=== PATIENT | male | born 1985 | race Caucasian/White ===

== ENCOUNTER 2016-05-19 23:06 | Emergency (ER) | payer OTHER ==
[2016-05-19 23:17] VITALS: RESP 18; TEMP 98
--- NOTE | 2016-05-19 23:39 | ED ---
ENT HPI - General Chief complaint: Dental/Oral Stated complaint: Dental Pain Time Seen by Provider: 05/19/16 23:30 Source: patient, RN notes reviewed Mode of arrival: ambulatory Limitations: no limitations - History of Present Illness Initial comments: 30-year-old male presents emergency Department chief complaint of right-sided dental pain. Patient states that this pain started about 2 weeks ago. Patient states he notices swelling over his tooth at this time so he was concerned. Patient denies any radiation of pain to the neck. Patient denies any difficulty opening closing the mouth. Patient denies any fever or chills. Patient denies any recent fever, chills, shortness of breath, chest pain, back pain, abdominal pain, nausea vomiting, numbness or tingling, dysuria or hematuria, constipation or diarrhea, headaches or visual changes, or any other current symptoms. - Related Data Previous Rx's Medication Instructions Recorded Ibuprofen [Motrin] 600 mg PO Q8HR PRN #30 tab 07/02/14 Ibuprofen [Motrin] 600 mg PO Q6HR PRN #20 tab 05/19/16 Penicillin V Potassium [Pen Vee K] 500 mg PO TID #40 tab 05/19/16 traMADol HCl [Ultram] 50 mg PO Q4H PRN #20 tab 05/19/16 Allergies Allergy/AdvReac Type Severity Reaction Status Date / Time acetaminophen [From Lortab] AdvReac Nausea & Verified 05/19/16 23:17 Vomiting hydrocodone bitartrate AdvReac Nausea & Verified 05/19/16 23:17 [From Lortab] Vomiting Review of Systems ROS Statement: Those systems with pertinent positive or pertinent negative responses have been documented in the HPI. ROS Other: All systems not noted in ROS Statement are negative. Past Medical History Past Medical History: GERD/Reflux, Hypertension History of Any Multi-Drug Resistant Organisms: None Reported Additional Past Surgical History / Comment(s): vasectomy Past Psychological History: Depression, PTSD Smoking Status: Current every day smoker Past Alcohol Use History: Rare Past Drug Use History: Marijuana General Exam Limitations: no limitations General appearance: alert, in no apparent distress Head exam: Present: atraumatic, normocephalic, normal inspection Expanded Mouth exam: Present: normal external inspection Teeth exam: Present: dental caries (Throughout), fractured tooth # (Multiple), dental tenderness # (76 and 5), gingival enlargement (Above tooth #5), other ( Dental abscess) Throat exam: normal inspection, tonsillar erythema Neck exam: Present: normal inspection. Absent: tenderness, meningismus, lymphadenopathy Respiratory exam: Present: normal lung sounds bilaterally. Absent: respiratory distress, wheezes, rales, rhonchi, stridor Cardiovascular Exam: Present: regular rate, normal rhythm, normal heart sounds. Absent: systolic murmur, diastolic murmur, rubs, gallop, clicks Neurological exam: Present: alert, oriented X3, CN II-XII intact. Absent: motor sensory deficit Psychiatric exam: Present: normal affect, normal mood Skin exam: Present: warm, dry, intact, normal color. Absent: rash Course Vital Signs 05/19/16 23:15 Temperature 98 F Pulse Rate 69 Respiratory 18 Rate Blood Pressure 129/74 O2 Sat by Pulse 100 Oximetry Procedures - Procedures Initial comment: 18-gauge needle was used to excise a dental abscess. Patient tolerated well. Medical Decision Making - Medical Decision Making 30-year-old male presents emergency Department what appears to be dental abscess. Patient underwent I&D. We discussed follow-up with the dentist. Discussed return parameters. We discussed his medications as prescribed. Patient stated that he understood and all his questions have been answered. He' ll be discharged home. Disposition Clinical Impression: Dental abscess Disposition: HOME SELF-CARE Condition: Stable Instructions: Dental Abscess (ED) Additional Instructions: Please use medication as discussed. Please follow up with family doctor if symptoms have not improved over the next two days. Please return to the emergency room if your symptoms increase or worsen or for any other concerns. [facility] [address] [place] [address] [phone] (existing clients only) For new clients: [phone] 1st consult: $50 (includes Xrays) Usually 30% less then private dentist for visits after. [employer] Have to pay $50 for Xrays anmd rest is covered. [phone] Prescriptions: Ibuprofen [Motrin] 600 mg PO Q6HR PRN #20 tab PRN Reason: Pain Penicillin V Potassium [Pen Vee K] 500 mg PO TID #40 tab traMADol HCl [Ultram] 50 mg PO Q4H PRN #20 tab PRN Reason: Pain Referrals: None,Stated [Primary Care Provider] - 1-2 days Jessica Le MD [STAFF PHYSICIAN] - 1-2 days Time of Disposition: 23:38
[2016-05-19 23:45] VITALS: BP 123/65; PULSE 88
== END 2016-05-19 23:45 | disposition home or self-care (01) ==
LOC: EC 23:06
DX: K04.7 Periapical abscess without sinus (principal); S02.5XXA Fracture of tooth (traumatic), initial encounter for closed fracture; X58.XXXA Exposure to other specified factors, initial encounter; K06.1 Gingival enlargement; Z88.6 Allergy status to analgesic agent; Z88.5 Allergy status to narcotic agent; F17.200 Nicotine dependence, unspecified, uncomplicated
CPT/HCPCS: 41800; 99282

== ENCOUNTER 2016-12-26 18:36 | Emergency (ER) | payer OTHER ==
[2016-12-26 18:42] VITALS: BP 139/75; PULSE 94; RESP 18; TEMP 98.8
[2016-12-26 18:46] LABS: Glucose,Whole Blood 92 mg/dL (75-99)
--- NOTE | 2016-12-26 18:58 | ED ---
General Adult HPI - General Chief complaint: Extremity Injury, Lower Stated complaint: raising toenails Time Seen by Provider: 12/26/16 18:45 Source: patient, RN notes reviewed Mode of arrival: ambulatory Limitations: no limitations - History of Present Illness Initial comments: Patient 32-year-old male who presents emergency room today with chief complaint of bilateral toe pain. He does admit that his toenails are currently. States she's been trying to keep him clean. He states that his symptoms should of the toenails. He's had increased pain to the great toes bilaterally. He states that the tip of the toes and seems to be more tender. He denies any other complaints or symptoms. States does not have a family doctor but seasonal basis. He denies any other complaints or symptoms currently. Patient denies any recent fever, chills, shortness of breath, chest pain, back pain, abdominal pain, nausea or vomiting, numbness or tingling, dysuria or hematuria, constipation or diarrhea, headaches or visual changes, or any other complaints. - Related Data Home Medications Medication Instructions Recorded Confirmed Ibuprofen [Motrin] 200 - 400 mg PO Q6HR PRN 05/19/16 05/19/16 Previous Rx's Medication Instructions Recorded Ibuprofen [Motrin] 600 mg PO Q6HR PRN #20 tab 05/19/16 Penicillin V Potassium [Pen Vee K] 500 mg PO TID #40 tab 05/19/16 traMADol HCl [Ultram] 50 mg PO Q4H PRN #20 tab 05/19/16 Cephalexin [Keflex] 500 mg PO Q12HR 10 Days 12/26/16 Ciclopirox [Penlac] 1 applic TOPICAL HS 30 Days 12/26/16 Allergies Allergy/AdvReac Type Severity Reaction Status Date / Time Penicillins Allergy Unknown Verified 12/26/16 18:42 acetaminophen [From Lortab] AdvReac Nausea & Verified 05/19/16 23:40 Vomiting hydrocodone bitartrate AdvReac Nausea & Verified 05/19/16 23:40 [From Lortab] Vomiting Review of Systems ROS Statement: Those systems with pertinent positive or pertinent negative responses have been documented in the HPI. ROS Other: All systems not noted in ROS Statement are negative. Past Medical History Past Medical History: GERD/Reflux, Hypertension History of Any Multi-Drug Resistant Organisms: None Reported Additional Past Surgical History / Comment(s): vasectomy Past Psychological History: Depression, PTSD Smoking Status: Current every day smoker Past Alcohol Use History: Rare Past Drug Use History: Marijuana General Exam - General Exam Comments Initial Comments: General: The patient is awake and alert, in no distress, and does not appear acutely ill. Eye: Pupils are equal, round and reactive to light, extra-ocular movements are intact. No nystagmus. There is normal conjunctiva bilaterally. No signs of icterus. Ears, nose, mouth and throat: There are moist mucous membranes and no oral lesions. Neck: The neck is supple, there is no tenderness or JVD. Cardiovascular: There is a regular rate and rhythm. No murmur, rub or gallop is appreciated. Respiratory: Lungs are clear to auscultation, respirations are non-labored, breath sounds are equal. No wheezes, stridor, rales, or rhonchi. Musculoskeletal: Normal ROM, no tenderness. Strength 5/5. Sensation intact. Pulses equal bilaterally 2+. Neurological: A&O x 3. CN II-XII intact, There are no obvious motor or sensory deficits. Coordination appears grossly intact. Speech is normal. Skin: Patient does have focal infection to the great toes bilaterally. Local tenderness to the distal aspect of the toes bilaterally. No sign of infection. Psychiatric: Cooperative, appropriate mood & affect, normal judgment. Limitations: no limitations Course Vital Signs 12/26/16 18:40 Temperature 98.8 F Pulse Rate 94 Respiratory 18 Rate Blood Pressure 139/75 O2 Sat by Pulse 99 Oximetry Medical Decision Making - Medical Decision Making Patient's blood sugar normal urine emergency room. Was started on topical antifungal agent along with antibiotics cover for possible secondary infection. Is advised close follow-up the family doctor. - Lab Data Lab Results 12/26/16 Range/Units 18:44 POC Glucose (mg/dL) 92 (75-99) mg/dL POC Glu Skoog Patching Machine Operator ID Chano Gayle Disposition Clinical Impression: Onychomycosis Disposition: HOME SELF-CARE Condition: Good Instructions: Antifungals (On the skin) Additional Instructions: Please use medication as discussed. Please follow-up with family doctor for further medications. Please return to emergency room if the symptoms increase or worsen or for any other concerns. Prescriptions: Cephalexin [Keflex] 500 mg PO Q12HR 10 Days Ciclopirox [Penlac] 1 applic TOPICAL HS 30 Days Referrals: None,Stated [Primary Care Provider] - 1-2 days Mehrdad Castillo MD [REFERRING] - 1-2 days Pepito Morse DO [STAFF PHYSICIAN] - 1-2 days Time of Disposition: 18:55
== END 2016-12-26 19:06 | disposition home or self-care (01) ==
LOC: EC 18:36
DX: B35.1 Tinea unguium (principal); F17.200 Nicotine dependence, unspecified, uncomplicated; Z88.0 Allergy status to penicillin; Z88.5 Allergy status to narcotic agent; Z88.8 Allergy status to other drugs, medicaments and biological substances
CPT/HCPCS: 36415; 99283

== ENCOUNTER 2017-04-18 15:06 | Emergency (ER) | payer OTHER ==
[2017-04-18 15:25] VITALS: BP 124/66; PULSE 74; RESP 18; TEMP 98
--- NOTE | 2017-04-18 15:48 | ED ---
General Adult HPI - General Chief complaint: Dental/Oral Stated complaint: dental pain Time Seen by Provider: 04/18/17 15:23 Source: patient, RN notes reviewed Mode of arrival: ambulatory Limitations: no limitations - History of Present Illness Initial comments: 31 yo male presents to the ER with cc of dental pain. Patient complains of right upper jaw dental pain. He had this about a year ago he took antibiotics and got better and did not follow up with dentist. Patient states the pain has reoccurred. Patient states is been no nausea vomiting. No difficulty opening closing mouth. No radiation into the neck. Patient was concerned due to his continued pain so he thought that he should be seen. He does have an ALLERGY to penicillins.Patient denies any recent fever, chills, shortness of breath, chest pain, back pain, abdominal pain, nausea vomiting, numbness or tingling, dysuria or hematuria, constipation or diarrhea, headaches or visual changes, or any other current symptoms. - Related Data Previous Rx's Medication Instructions Recorded Clindamycin [Cleocin] 450 mg PO Q8HR #90 capsule 04/18/17 Ibuprofen [Motrin] 600 mg PO Q6HR PRN #20 tab 04/18/17 Allergies Allergy/AdvReac Type Severity Reaction Status Date / Time Penicillins Allergy Unknown Verified 04/18/17 15:36 hydrocodone bitartrate AdvReac Nausea & Verified 04/18/17 15:36 [From Lortab] Vomiting Review of Systems ROS Statement: Those systems with pertinent positive or pertinent negative responses have been documented in the HPI. ROS Other: All systems not noted in ROS Statement are negative. Past Medical History Past Medical History: GERD/Reflux, Hypertension History of Any Multi-Drug Resistant Organisms: None Reported Past Surgical History: No Surgical Hx Reported Additional Past Surgical History / Comment(s): vasectomy Past Psychological History: Depression, PTSD Smoking Status: Current every day smoker Past Alcohol Use History: None Reported Past Drug Use History: Marijuana General Exam Limitations: no limitations General appearance: alert, in no apparent distress Eye exam: Present: normal appearance, PERRL, EOMI. Absent: scleral icterus, conjunctival injection, periorbital swelling ENT exam: Present: normal exam, mucous membranes moist, other (No abscess noted. Patient does have diffuse dental caries) Neck exam: Present: normal inspection. Absent: tenderness, meningismus, lymphadenopathy Respiratory exam: Present: normal lung sounds bilaterally. Absent: respiratory distress, wheezes, rales, rhonchi, stridor Cardiovascular Exam: Present: regular rate, normal rhythm, normal heart sounds. Absent: systolic murmur, diastolic murmur, rubs, gallop, clicks Back exam: Present: normal inspection Neurological exam: Present: alert, oriented X3 Psychiatric exam: Present: normal affect, normal mood Skin exam: Present: warm, dry, intact, normal color. Absent: rash Course Vital Signs 04/18/17 15:22 Temperature 98 F Pulse Rate 74 Respiratory 18 Rate Blood Pressure 124/66 O2 Sat by Pulse 100 Oximetry Medical Decision Making - Medical Decision Making 31-year-old male presents emergency department with a chief complaint of dental pain. At this time we will start patient antibiotics. He does have diffuse caries. We discussed important follow-up with the dentist we discussed return parameters all questions. Patient stated he understood he is given plan. He will be discharged. Disposition Clinical Impression: Dental caries Disposition: HOME SELF-CARE Condition: Stable Instructions: Dental Caries (ED) Additional Instructions: Please use medication as discussed. Please follow up with family doctor if symptoms have not improved over the next two days. Please return to the emergency room if your symptoms increase or worsen or for any other concerns. [facility] [address] [place] [address] [phone] (existing clients only) For new clients: [phone] 1st consult: $50 (includes Xrays) Usually 30% less then private dentist for visits after. [employer] Have to pay $50 for Xrays anmd rest is covered. [phone] Prescriptions: Clindamycin [Cleocin] 450 mg PO Q8HR #90 capsule Ibuprofen [Motrin] 600 mg PO Q6HR PRN #20 tab PRN Reason: Pain Referrals: Mehrdad Castillo MD [REFERRING] - 1-2 days Time of Disposition: 15:47
== END 2017-04-18 15:57 | disposition home or self-care (01) ==
LOC: EC 15:06
DX: K02.9 Dental caries, unspecified (principal); F17.200 Nicotine dependence, unspecified, uncomplicated; Z88.0 Allergy status to penicillin; Z88.5 Allergy status to narcotic agent; Z88.8 Allergy status to other drugs, medicaments and biological substances
CPT/HCPCS: 99282

== ENCOUNTER 2018-01-14 21:30 | Emergency (ER) | payer OTHER ==
[2018-01-14 21:40] VITALS: BP 131/77; PULSE 70; RESP 18; TEMP 98.2
[2018-01-14 22:27] LABS: Glucose,Whole Blood 107 mg/dL (75-99)
--- NOTE | 2018-01-14 22:36 | XR ---
EXAMINATION TYPE: XR foot complete RT DATE OF EXAM: 01/14/2018 COMPARISON: NONE HISTORY: Gout. Pain. TECHNIQUE: 3 views FINDINGS: I see no fracture nor dislocation. Joint spaces are normal. There are no erosions. Soft tis sues appear normal. IMPRESSION: Negative exam. No evidence of gout.
--- NOTE | 2018-01-14 23:00 | ED ---
Lower Extremity Injury HPI - General Chief Complaint: Extremity Injury, Lower Stated Complaint: Toe pain Time Seen by Provider: 01/14/18 21:48 Source: patient, family, RN notes reviewed, old records reviewed Mode of arrival: ambulatory Limitations: no limitations - History of Present Illness Initial Comments: This is a 32 yo male with R great toe pain intermiettently for 2 days. Patient states he is concerned he is diabetic due to foot pain. Patient reports no symptoms of DM including thirst, polyuria. Patient denies any other symptoms. Patient denies traumato foot. Denies skin changes. - Related Data Home Medications Medication Instructions Recorded Confirmed QUEtiapine [SEROquel] 200 mg PO HS 01/14/18 01/14/18 traZODone HCL [Desyrel] 200 mg PO HS 01/14/18 01/14/18 Previous Rx's Medication Instructions Recorded Ibuprofen 600 mg PO TID #20 tablet 01/14/18 Allergies Allergy/AdvReac Type Severity Reaction Status Date / Time Penicillins Allergy Unknown Verified 01/14/18 21:40 hydrocodone bitartrate AdvReac Nausea & Verified 01/14/18 21:40 [From Lortab] Vomiting Review of Systems ROS Statement: Those systems with pertinent positive or pertinent negative responses have been documented in the HPI. ROS Other: All systems not noted in ROS Statement are negative. Past Medical History Past Medical History: GERD/Reflux, Hypertension History of Any Multi-Drug Resistant Organisms: None Reported Past Surgical History: No Surgical Hx Reported Additional Past Surgical History / Comment(s): vasectomy Past Psychological History: Depression, PTSD Smoking Status: Current every day smoker Past Alcohol Use History: None Reported Past Drug Use History: Marijuana General Exam - General Exam Comments Initial Comments: Well appearing 32 year old male, no distress. Limitations: no limitations General appearance: alert, in no apparent distress Head exam: Present: atraumatic, normocephalic, normal inspection Eye exam: Present: normal appearance, PERRL, EOMI. Absent: scleral icterus, conjunctival injection, periorbital swelling ENT exam: Present: normal exam, mucous membranes moist Neck exam: Present: normal inspection. Absent: tenderness, meningismus, lymphadenopathy Respiratory exam: Present: normal lung sounds bilaterally. Absent: respiratory distress, wheezes, rales, rhonchi, stridor Cardiovascular Exam: Present: regular rate, normal rhythm, normal heart sounds. Absent: systolic murmur, diastolic murmur, rubs, gallop, clicks Extremities exam: Present: normal inspection, full ROM, normal capillary refill. Absent: tenderness, pedal edema, joint swelling, calf tenderness Right Knee exam: Present: normal inspection, full ROM Lower Leg exam: Present: normal inspection, full ROM Ankle exam: Present: normal inspection, full ROM Foot/Toe exam: Present: normal inspection, full ROM Neurovascular tendon exam: Present: no vascular compromise Gait: observed and normal Back exam: Present: normal inspection Neurological exam: Present: alert, oriented X3, CN II-XII intact Psychiatric exam: Present: normal affect, normal mood Skin exam: Present: warm, dry, intact, normal color. Absent: rash Course Vital Signs 01/14/18 21:35 Temperature 98.2 F Pulse Rate 70 Respiratory 18 Rate Blood Pressure 131/77 O2 Sat by Pulse 100 Oximetry Medical Decision Making - Medical Decision Making 32 year old male with R foot pain, convinced that he may have diabetes due to foot pain. Patient BG is 109, no symptoms of diabetes. Discussed patient is not diabetic. Patient has normal pulses. Patient has no signs of gout at this time, no skin changes. CXR of foot was reviewed and normal. Discussed that patient can follow up with PCP and RICE the foot and toe. DC with ibuprofen. - Lab Data Lab Results 01/14/18 Range/Units 22:23 POC Glucose (mg/dL) 107 H (75-99) mg/dL POC Glu Busher Helper ID Jumana Jamison - Radiology Data Radiology results: report reviewed Normal foot xray, no sign of gout arthropathy. Disposition Clinical Impression: Toe pain, left Disposition: HOME SELF-CARE Condition: Good Additional Instructions: Patient has rest, ice, and elevate the foot. Return if there is any signs of skin changes including redness. Take medication as prescribed. Return to emergency department if any alarming signs or symptoms occur. Prescriptions: Ibuprofen 600 mg PO TID #20 tablet Is patient prescribed a controlled substance at d/c from ED?: No Referrals: None,Stated [Primary Care Provider] - 1-2 days Time of Disposition: 22:59
== END 2018-01-14 23:14 | disposition home or self-care (01) ==
LOC: EC 21:30
DX: M79.674 Pain in right toe(s) (principal); M79.671 Pain in right foot; F32.9 Major depressive disorder, single episode, unspecified; F17.200 Nicotine dependence, unspecified, uncomplicated; Z79.899 Other long term (current) drug therapy; Z88.0 Allergy status to penicillin; Z88.8 Allergy status to other drugs, medicaments and biological substances
CPT/HCPCS: 36415; 99284

== ENCOUNTER 2024-08-14 15:10 | Emergency (ER) | payer OTHER ==
--- NOTE | 2024-08-14 16:02 | ED ---
URI HPI - General Chief Complaint: Shortness of Breath Stated Complaint: SOB Time Seen by Provider: 08/14/24 15:31 Source: patient, RN notes reviewed, old records reviewed Mode of arrival: ambulatory Limitations: no limitations - History of Present Illness Initial Comments: This is a 38-year-old male to ER for cough congestion dizziness weakness overall not feeling well., No travel history or sick contacts but patient does have fever no cough or congestion. No chest pain. Just some lightheadedness dizziness and cough MD Complaint: cough -: days(s) Severity: mild Severity scale (1-10): 2 Consistency: constant Improves With: nothing Worsens With: nothing Associated Symptoms: denies other symptoms Treatments Prior to Arrival: none - Related Data Home Medications Medication Instructions Recorded Confirmed QUEtiapine [SEROquel] 200 mg PO HS 01/14/18 01/14/18 traZODone HCL [Desyrel] 200 mg PO HS 01/14/18 01/14/18 Previous Rx's Medication Instructions Recorded Ibuprofen 600 mg PO TID #20 tablet 01/14/18 Allergies Allergy/AdvReac Type Severity Reaction Status Date / Time Penicillins Allergy Unknown Verified 08/14/24 15:14 hydrocodone bitartrate AdvReac Nausea & Verified 08/14/24 15:14 [From Lortab] Vomiting Review of Systems ROS Statement: Those systems with pertinent positive or pertinent negative responses have been documented in the HPI. ROS Other: All systems not noted in ROS Statement are negative. Past Medical History Past Medical History: GERD/Reflux, Hypertension History of Any Multi-Drug Resistant Organisms: None Reported Past Surgical History: No Surgical Hx Reported Additional Past Surgical History / Comment(s): vasectomy Past Psychological History: Depression, PTSD Past Alcohol Use History: None Reported Past Drug Use History: Marijuana General Exam Limitations: no limitations General appearance: alert, in no apparent distress Head exam: Present: atraumatic, normocephalic, normal inspection Eye exam: Present: normal appearance, PERRL, EOMI. Absent: scleral icterus, conjunctival injection, periorbital swelling ENT exam: Present: normal exam, mucous membranes moist Neck exam: Present: normal inspection. Absent: tenderness, meningismus, lymphad enopathy Respiratory exam: Present: normal lung sounds bilaterally. Absent: respiratory distress, wheezes, rales, rhonchi, stridor Cardiovascular Exam: Present: regular rate, normal rhythm, normal heart sounds. Absent: systolic murmur, diastolic murmur, rubs, gallop, clicks GI/Abdominal exam: Present: soft, normal bowel sounds. Absent: distended, tenderness, guarding, rebound, rigid Extremities exam: Present: normal inspection, full ROM, normal capillary refill. Absent: tenderness, pedal edema, joint swelling, calf tenderness Back exam: Present: normal inspection Neurological exam: Present: alert, oriented X3, CN II-XII intact Psychiatric exam: Present: normal affect, normal mood Skin exam: Present: warm, dry, intact, normal color. Absent: rash Course Vital Signs 08/14/24 08/14/24 08/14/24 15:10 16:49 16:57 Temperature 97.8 F Pulse Rate 73 65 68 Respiratory 22 Rate Blood Pressure 137/92 O2 Sat by Pulse 100 Oximetry - Reevaluation(s) Reevaluation #1: 08/14/24 17:10 Medical records reviewed Reevaluation #2: 08/14/24 17:10 Patient informed of results and questions answered Reevaluation #3: 08/14/24 17:10 Patient had improved here in the ER Reevaluation #4: Was pt. sent in by a medical professional or institution (, PA, [employer]ER, urgent care, hospital, or [place] [facility] facility...) When possible be specific @ -no Did you speak to anyone other than the patient for history (EMS, parent, family, police, friend...)? What history was obtained from this source @ -no Did you review nursing and triage notes (agree or disagree)? Why? @ -agree Are old charts reviewed (outside hosp., previous admission, EMS record, old EKG, old radiological studies, urgent care reports/EKG's, [place] [facility] records)? Report findings @ -yes Differential Diagnosis (chest pain, altered mental status, abdominal pain women, abdominal pain men, vaginal bleeding, weakness, fever, dyspnea, syncope, headache, dizziness, GI bleed, back pain, seizure, CVA, palpatations, mental health, musculoskeletal)? @ -prior EKG interpreted by me (3pts min.). @ -yes X-rays interpreted by me (1pt min.). @ -yes negative for acute disease CT interpreted by me (1pt min.). @ -no U/S interpreted by me (1pt. min.). @ -no What testing was considered but not performed or refused? (CT, X-rays, U/S, labs)? Why? @ -none What meds were considered but not given or refused? Why? @ -none Did you discuss the management of the patient with other professionals (professionals i.e. DrGibson, PA, [employer]UMENT [employer]ER, lab, RT, psych nurse, director social, registered nurse, teacher, cash management officer, case managers)? Give summary @ -no Was smoking cessation discussed for >3mins.? @ -no Was critical care preformed (if so, how long)? @ -no Were there social determinants of health that impacted care today? How? (Homelessness, low income, unemployed, alcoholism, drug addiction, transportation, low edu. Level, literacy, decrease access to med. care, [facility], rehab)? @ -none Was there de-escalation of care discussed even if they declined (Discuss DNR or withdrawal of care, Hospice)? DNR status @ -no What co-morbidities impacted this encounter? (DM, HTN, Smoking, COPD, CAD, Cancer, CVA, ARF, Chemo, Hep., AIDS, mental health diagnosis, sleep apnea, morbid obesity)? @ -none Was patient admitted / discharged? Hospital course, mention meds given and route, prescriptions, significant lab abnormalities, going to OR and other pertinent info. @ - Undiagnosed new problem with uncertain prognosis? @ -no Drug Therapy requiring intensive monitoring for toxicity (Heparin, Nitro, Insulin, Cardizem)? @ -no Were any procedures done? @ -no Diagnosis/symptom? @ - Acute, or Chronic, or Acute on Chronic? @ -Acute Uncomplicated (without systemic symptoms) or Complicated (systemic symptoms)? @ -Complicated Side effects of treatment? @ -no Exacerbation, Progression, or Severe Exacerbation? @ -exacerbation Poses a threat to life or bodily function? How? (Chest pain, [place], [place], pneumonia, PE, COPD, DKA, ARF, appy, cholecystitis, CVA, Diverticulitis, Homicidal, Suicidal, threat to staff... and all critical care pts) @ -yes Medical Decision Making - Medical Decision Making 38 male to the ER for evaluation of cough congestion no acute findings on x-ray, patient can be discharged home continue outpatient Motrin Tylenol increase water intake - Lab Data Lab Results 08/14/24 Range/Units 15:35 Influenza Type A (PCR) Not Detected (Not Detectd) Influenza Type B (PCR) Not Detected (Not Detectd) RSV (PCR) Not Detected (Not Detectd) SARS-CoV-2 (PCR) Not Detected (Not Detectd) - EKG Data -: EKG Interpreted by Me (EKG is sinus 74 [place] 139 QRS 96 QTc 402) Disposition Clinical Impression: URI (upper respiratory infection) Disposition: HOME SELF-CARE Condition: Good Instructions (If sedation given, give patient instructions): Upper Respiratory Infection (ED) Is patient prescribed a controlled substance at d/c from ED?: No Referrals: Noah Armijo MD [Primary Care Provider] - 1-2 days Time of Disposition: 17:00
[2024-08-14] MEDS: DEXAMETHASONE SOD PHOSPHATE 10 MG/ML 1 ML VIAL IM STA (16:07)
[2024-08-14] MEDS: IBUPROFEN 800 MG TAB PO STA (16:07)
[2024-08-14] MEDS: ACETAMINOPHEN TAB 500 MG TAB PO STA (16:07)
[2024-08-14] MEDS: BENZONATATE 100 MG CAP PO STA (16:07)
--- NOTE | 2024-08-14 16:29 | XR ---
EXAMINATION TYPE: XR chest 2V DATE OF EXAM: 08/14/2024 4:23 PM COMPARISON: None CLINICAL INDICATION: Male, 38 years old with history of sob, , TECHNIQUE: PA and lateral views FINDINGS: Heart normal size. Aorta and pulmonary vasculature within normal limits. Mild biapical pleural parenc hymal scarring. Mild hyperinflation may relate to depth of inspiration or underlying emphysema. No co nsolidation or pleural effusion. IMPRESSION: Hyperinflation may relate to depth of inspiration or underlying emphysema. Clinically correlate. No d efinite acute process seen. [facility], Workstation: [email or web address], 08/14/2024 4:26 PM
[2024-08-14] MEDS: IPRATROPIUM-ALBUTEROL 3 ML NEB INHALATION STA (16:49)
[2024-08-14 16:52] LABS: Influenza A Not Detected (Not Detectd); Influenza B Not Detected (Not Detectd); RSV Not Detected (Not Detectd)
[2024-08-14 17:23] VITALS: BP 123/85; PULSE 64; RESP 17; TEMP 98.2
== END 2024-08-14 17:30 | disposition home or self-care (01) ==
LOC: EC 15:10
DX: J06.9 Acute upper respiratory infection, unspecified (principal); Z88.0 Allergy status to penicillin; Z88.5 Allergy status to narcotic agent
CPT/HCPCS: 94640; 87636; 71046; 99285; 96372; J1100